=== PATIENT | male | born 1965 | race Two or more races ===

== ENCOUNTER 2022-02-20 19:35 | Emergency (ER) | payer OTHER ==
[~2022-02-20] VITALS: Ht 193 cm; Wt 111.4 kg
[2022-02-20] MEDS ORDERED: ACETAMINOPHEN 500 MG TAB PO ONE (20:00)
[2022-02-20 20:28] LABS: Basophils # (auto) 0 10 ^3/uL (0-0.2); Basophils % (auto) 0.1 % (0.0-2.0); Eosinophils # (auto) 0 10 ^3/uL (0-0.8); Hemoglobin 15.2 g/dL (13.5-17.5); Lymphocytes % (auto) 6.2 % (10.0-50.0); Mean Corpuscular Hemoglobin 29.5 pg (28.0-32.0); Mean Corpuscular Hgb Conc. 34.5 g/dL (32.0-36.0); Mean Corpuscular Volume 85.7 fL (80.0-100.0); Monocytes # (auto) 1.2 10 ^3/uL (0-1.3); Monocytes % (auto) 7.2 % (0.0-12.0); Neutrophils # (auto) 14.7 10 ^3/uL (1.6-8.6); Neutrophils % (auto) 86.5 % (37.0-80.0); Red Blood Cells 5.14 10^6/uL (4.5-5.90)
[2022-02-20 20:51] LABS: INR 1.06 (0.9-1.15); Partial Thromboplastin Time 32.5 sec (24.6-33.4)
[2022-02-20 20:57] LABS: Albumin 3.3 g/dL (3.4-5.0); Potassium 3.6 mmol/L (3.5-5.1)
[2022-02-20 20:59] LABS: Bilirubin, Total 0.6 mg/dL (0.2-1.0); Total Protein 6.8 g/dL (6.4-8.2)
[2022-02-20] MEDS ORDERED: AZITHROMYCIN 500MG/ 250ML 250 ML IV ONE (21:45)
[2022-02-20] MEDS ORDERED: SODIUM CHLORIDE 0.9% 1,000 ML IV ONE (21:45)
[2022-02-21] MEDS ORDERED: AZIT250T9 PO (02:19)
[2022-02-21] MEDS ORDERED: ALBUAER3 IN (02:25)
[2022-02-21 04:00] VITALS: BP 115/55
== END 2022-02-21 04:22 | disposition home or self-care (01) ==
LOC: ER 19:40
DX: J40 Bronchitis, not specified as acute or chronic (principal); R73.9 Hyperglycemia, unspecified; R07.89 Other chest pain; Z20.822 Contact with and (suspected) exposure to COVID-19
CPT/HCPCS: 36415; 71045; 80053; 83880; 84484; 85025; 85610; 85730; 87426; 87804; 93005; 96365; 96366; 99285; J0456; J7030